=== PATIENT | male | born 1980 | race Caucasian/White ===

== ENCOUNTER → 2019-02-25 11:01 | Outpatient (CLI) | payer SELFPAY ==
[2019-02-25 11:07] VITALS: BP 108/71; PULSE 78; RESP 14; TEMP 36.8; O2SAT 100; BMI 24.8
--- NOTE | 2019-02-25 11:47 | HTC.HP3 ---
Problem List (1) Hemophilia B in male Status: Chronic Subjective Date of Service:: 02/25/19 Chief Complaint: F/U for Hemophilia B. 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 Feels well, has not used factor replacement this past year. Has not had any dental work done. Health History: Past Medical History Past Medical History: Bleeding disorder Other Past Medical History: SHINGLES Past Surgical History Other Surgical History: TOOTH EXTRACTION Family History Paternal Past Medical History: Hypertension Maternal Past Medical History: Unknown Past Medical History (Last Reviewed 02/25/19 @ 11:06 by Hetal Potts) Hemophilia B (Acute) Past Surgical History (Last Reviewed 02/25/19 @ 11:06 by Hetal Potts) No history of previous surgery (Acute) Family History (Last Reviewed 02/25/19 @ 11:06 by Hetal Potts) Father Hypertension Allergies/Adverse Reactions: Allergy/AdvReac Type Severity Reaction Status Date / Time aspirin AdvReac Severe BLEEDING Verified 02/25/19 11:06 Risk Factors Social History Smoking Status Former smoker Tobacco Risk Data: Tobacco Risk Smoking Status Former smoker Type of tobacco: Smokeless tobacco usage: Items/Day: Year started: Years used: Counseled to quit/cut down: Reason for no counseling performed: Reason for no pharmacotherapy: Tobacco use comments: Passive smoke exposure: Substance Risk Drug use: No Caffeine use [drinks/day]: Alcohol use: No Type of alcohol: Drinks per day: Has patient felt the need to cut down: Has the patient been annoyed by complaints: Has the patient felt guilty about drinking: Has the patient needed an eye adult and pediatric neurologist in the mornings: Comments: Review of Systems Constitutional:: Denies: Fever, Sweats, Weight loss, Appetite change, Chills Cardiovascular:: Denies: Chest pain, Palpitations, Dyspnea on exertion, Orthopnea, PND, Shortness of breath Respiratory: Denies: Cough, Hemoptysis, Shortness of Breath, Wheezing Gastrointestinal:: Denies: Abdominal pain, Nausea, Vomiting, Diarrhea, Constipation, Hematochezia Genitourinary: Denies: Dysuria, Hematuria, 15, Flank pain Musculoskeletal:: Denies: Back pain, Myalgia, Arthralgia Skin: Denies: Rash, Skin Changes, Wounds Neurological:: Denies: Headache, Dizziness, Visual changes, Tinnitus, Hearing loss Psychiatric: Denies: Anxiety, Depression, Homicidal Ideations, Suicidal Ideations Vital Signs Height 5 ft 10 in Weight: 78.471 kg Weight in Pounds 173.0 lbs Pulse Ox 100 Temperature 98.3 F Pulse Rate 78 Respiratory Rate 14 Blood Pressure 108/71 - Physical Exam General: Alert, Oriented x3, No apparent distress HEENT: Atraumatic, PERRLA, EOMI, Normocephalic Oropharynx:: Dry mucosa Neck:: Supple, Trachea midline. Negative for: JVD, bilateral Cardiac:: Regular rate, Regular rhythm, Normal S1, Normal S2. Negative for: Murmur Lungs: Clear to auscultation, Excusion symmetrical. Negative for: Rhonchi, Wheezes Abdomen:: Bowel sounds x 4, Soft, Non-tender, Non-distended. Negative for: Hepatosplenomegaly Extremities:: Negative for: Cyanosis, Edema Neurological: Neuro grossly intact Skin:: Negative for: Lesions, Rash, Petechiae, Ecchymosis Psychiatric:: Appropriate affect, Euthymic Lymphatics:: Negative for: Cervical lymphadenopathy, Supraclavicular lymphadenopathy, Axillary lymphadenopathy Therapy ROM Screening - Subjective Subjective:: Pt states he is doing well no concerns - Objective Right shoulder flex:: 155 Left shoulder flex:: 150 Right shoulder extension:: 50 Left shoulder extension:: 50 Right elbox flex/ext:: 145/0 Left elbox flex/ext:: 145/0 Right elbow circumference:: 27.5 cm Left elbow circumference:: 28cm Right forearm sup/pron:: WNL Left forearm sup/pron:: WNL Right knee flexion:: 120 Left knee flexion:: 120 Right knee circumference:: 36cm Left knee circumference:: 36cm Right ankle dorsiflexion:: 20 Left ankle dorsiflexion:: 20 Right ankle Plan-flex:: 45 Left ankle Plan-flex:: 45 Right ankle circumference:: not tested boots on Left ankle circumference:: not tested boots on Right hip flexion:: 90 Left hip flexion:: 90 Right hip extension:: 20 Left hip extension:: 20 - Assessment Assessment:: pt demo all ROM WNL no concerns at this time. Assessment and Plan Hemophilia B, clinically stable. Plan is to continue expectant management with factor replacement as needed. RTC 1 yr. Primary Care Provider: No Primary Care Phys Referring Provider: Mark Brush MD
== END ==
PROVIDERS: Referring Provider Internal Medicine Medical Oncology; Visit Provider Internal Medicine Medical Oncology
DX: D67 Hereditary factor IX deficiency (principal); Z88.6 Allergy status to analgesic agent; Z87.891 Personal history of nicotine dependence